=== PATIENT | female | born 1960 | race Caucasian/White ===

== ENCOUNTER → 2019-04-29 | Outpatient (CLI) | payer BC ==
[~2019-04-29] MED LIST: DIATRIZOATE MEGLUMINE 300ML INFUS BTL UR ONE
== END | disposition home or self-care (01) ==
LOC: RAD 10:26
PROVIDERS: ATTEND Specialist
DX: K21.9 Gastro-esophageal reflux disease without esophagitis (principal)
CPT/HCPCS: 51600; 74455; Q9958; A4315